=== PATIENT | male | born 1975 | race American Indian/Alaskan Native ===

== ENCOUNTER 2017-11-14 13:13 | Observation (INO) | payer OTHER ==
[2017-11-14] MEDS ORDERED: ASPIRIN PO ONE (13:24)
[2017-11-14 14:36] LABS: Basophils # (Auto) 0.1 K/mm3 (0.0-0.1); Eosinophils # (Auto) 0.2 K/mm3 (0.0-0.4); Eosinophils % (Auto) 2.2 % (0.0-4.3); Lymphocytes # (Auto) 1.2 K/mm3 (1.2-5.4); Lymphocytes % (Auto) 12.6 % (13.4-35.0); Mean Corpuscular HGB Conc 30 % (32-34); Mean Corpuscular Volume 74 fl (84-94); Monocytes # (Auto) 0.9 K/mm3 (0.0-0.8); Platelet Count 346 K/mm3 (140-440); Red Blood Count 5.03 M/mm3 (3.65-5.03); Red Cell Distribution Width 19.3 % (13.2-15.2)
[2017-11-14 14:37] LABS: Hemoglobin 11.2 gm/dl (11.8-15.2); Mean Corpuscular Hemoglobin 22 pg (28-32)
[2017-11-14 14:46] LABS: BUN/Creatinine Ratio 14; Blood Urea Nitrogen 11 mg/dL (9-20); Calcium 9.3 mg/dL (8.4-10.2); Hemolysis Index 0
--- NOTE | 2017-11-14 14:48 | Emergency Department Report ---
Blank Doc - Documentation Documentation: Patient is 42 years old male, morbidly obese. Patient presented to the ER complaining OF substernal chest pain, patient described his pain as he pulled muscle even though he did not have any physical activities recently. Patient stated that his pain is associated with shortness of breath and he will get very winded if he will for even a small distance. Patient also complaining of bilateral lower extremity edema. Patient denied any fever or cough. Given patient's clinical presentation, I believe this patient will be served well in our main ED.
--- NOTE | 2017-11-14 15:43 | XRay Report ---
PORTABLE CHEST INDICATION: Chest pain. COMPARISON: None similar at this institution. FINDINGS: Portable, frontal chest radiograph demonstrates exaggerated cardiomediastinal silhouette with cardiomegaly not excluded. Clear lungs. Exam in part limited due to patient's body habitus. EKG leads. Intact bones. CONCLUSION: No acute chest process, as described. Thank you for the opportunity to participate in this patient's care.
[2017-11-14] MEDS ORDERED: BABY ASPIRIN PO ONE (16:27)
[2017-11-14] MEDS ORDERED: LASIX IV ONE (16:27)
[2017-11-14] MEDS ORDERED: NITROSTAT SL PRN (16:27)
--- NOTE | 2017-11-14 16:28 | Emergency Department Report ---
ED Chest Pain HPI - General Chief Complaint: Chest Pain Stated Complaint: CHEST PAIN Time Seen by Provider: 11/14/17 14:41 Source: patient Mode of arrival: Ambulatory Limitations: No Limitations - History of Present Illness Initial Comments: This is a 42-year-old obese male, who was unknown to this provider previously, presents to the ER with a complaint of anterior chest wall pain secondary to coughing and bilateral lower extremity swelling. Patient denies DVT, pulmonary embolus risk factors. He reports that he gets quite sleepy during the day and falls asleep frequently during the day. He indicates that his significant other who sleeps with him has indicated that he stops breathing at nighttime. The patient has not had a cardiac stress test that he is aware of, nor has he had a sleep study that he is aware. He endorses chronic two-pillow orthopnea. He does not think he's had any unintentional weight gain. MD Complaint: chest pain -: Gradual Onset: during rest Pain Location: substernal Pain Radiation: RUE Consistency: intermittent Improves With: rest Worsens With: palpation Other Symptoms: cough Aspirin use within the Past 7 Days: (0) No - Related Data On Oral Contraceptives: No Home Medications Medication Instructions Recorded Confirmed Last Taken No Known Home Medications [No 11/14/17 11/14/17 Unknown Reported Home Medications] Allergies Allergy/AdvReac Type Severity Reaction Status Date / Time No Known Allergies Allergy Verified 11/14/17 13:21 Heart Score - HEART Score History: Slightly suspicious EKG: Non-specific Age: < 45 Risk factors: 1-2 risk factors Troponin: < normal limit HEART Score: 2 - Critical Actions Critical Actions: 0-3 pts:0.9-1.7%risk of adverse cardiac event.Candidate for discharge ED Review of Systems ROS: Stated complaint: CHEST PAIN Other details as noted in HPI Constitutional: denies: fever, malaise Respiratory: cough, shortness of breath Cardiovascular: chest pain Genitourinary: denies: dysuria Musculoskeletal: myalgia, other (bilateral lower extremity swelling) Neurological: weakness. denies: headache Psychiatric: denies: anxiety ED Past Medical Hx - Past Medical History Previous Medical History?: No - Surgical History Past Surgical History?: No - Social History Smoking Status: Former Smoker Substance Use Type: None - Medications Home Medications: Home Medications Medication Instructions Recorded Confirmed Last Taken Type No Known Home Medications [No 11/14/17 11/14/17 Unknown History Reported Home Medications] ED Physical Exam - General Limitations: No Limitations General appearance: alert, in no apparent distress, obese - Head Head exam: Present: atraumatic, normocephalic - Eye Eye exam: Present: normal appearance - ENT ENT exam: Present: normal exam, normal orophraynx, mucous membranes moist, normal external ear exam - Neck Neck exam: Present: normal inspection, full ROM - Respiratory Respiratory exam: Present: normal lung sounds bilaterally, chest wall tenderness. Absent: respiratory distress - Cardiovascular Cardiovascular Exam: Present: regular rate, normal rhythm, normal heart sounds. Absent: systolic murmur, diastolic murmur, rubs, gallop - GI/Abdominal GI/Abdominal exam: Present: soft, normal bowel sounds. Absent: distended, tenderness, guarding, rebound, rigid, pulsatile mass - Rectal Rectal exam: Present: deferred - Extremities Exam Extremities exam: Present: normal inspection (2+ pulses noted in the bilateral upper, lower extremities. Compartments soft. No long bony tenderness. The pelvis is stable.), full ROM, normal capillary refill, pedal edema, other (2+ pulses noted in the bilateral upper, lower extremities. Compartments soft. No long bony tenderness. The pelvis is stable.). Absent: tenderness, calf tenderness - Back Exam Back exam: Present: normal inspection, full ROM. Absent: tenderness, CVA tenderness (R), paraspinal tenderness, vertebral tenderness - Neurological Exam Neurological exam: Present: alert, oriented X3, CN II-XII intact, normal gait, other (no facial droop. Tongue midline. Extraocular movements intact bilaterally. Facial sensation intact to light touch in V1, V2, V3 distribution bilaterally. 5 and a 5 strength in 4 extremities. Sensation intact to light touch in 4 extremities.). Absent: motor sensory deficit - Psychiatric Psychiatric exam: Present: normal affect, normal mood - Skin Skin exam: Present: warm, dry, intact, normal color. Absent: rash ED Course Vital Signs 11/14/17 11/14/17 11/14/17 13:21 16:00 17:00 Temperature 99.1 F Pulse Rate 86 77 84 Respiratory 16 19 20 Rate Blood Pressure 164/89 152/90 Blood Pressure 161/79 [Left] O2 Sat by Pulse 96 93 95 Oximetry 11/14/17 18:01 Temperature Pulse Rate 86 Respiratory 15 Rate Blood Pressure 174/85 Blood Pressure [Left] O2 Sat by Pulse 95 Oximetry JAKI score - Jaki Score Age > 65: (0) No Aspirin use within the Past 7 Days: (0) No 3 or more CAD Risk Factors: (0) No 2 or more Angina events in past 24 hrs: (0) No Known CAD with more than 50% Stenosis: (0) No Elevated Cardiac Markers: (0) No ST Deviation Greater than 0.5mm: (0) No JAKI Score: 0 ED Medical Decision Making - Lab Data Result diagrams: 11/14/17 14:04 11/14/17 14:04 Vital Signs 11/14/17 11/14/17 13:21 16:00 Temperature 99.1 F Pulse Rate 86 77 Respiratory 16 19 Rate Blood Pressure 164/89 152/90 O2 Sat by Pulse 96 93 Oximetry Lab Results 11/14/17 11/14/17 11/14/17 Range/Units 14:04 14:04 14:53 WBC 9.9 (4.5-11.0) K/mm3 RBC 5.03 (3.65-5.03) M/mm3 Hgb 11.2 L (11.8-15.2) gm/dl Hct 37.0 (35.5-45.6) % MCV 74 L (84-94) fl MCH 22 L (28-32) pg MCHC 30 L (32-34) % RDW 19.3 H (13.2-15.2) % Plt Count 346 (140-440) K/mm3 Lymph % (Auto) 12.6 L (13.4-35.0) % [place] % (Auto) 9.0 H (0.0-7.3) % Eos % (Auto) 2.2 (0.0-4.3) % Baso % (Auto) 1.0 (0.0-1.8) % Lymph # 1.2 (1.2-5.4) K/mm3 [place] # 0.9 H (0.0-0.8) K/mm3 Eos # 0.2 (0.0-0.4) K/mm3 Baso # 0.1 (0.0-0.1) K/mm3 Seg Neutrophils % 75.2 H (40.0-70.0) % Seg Neutrophils # 7.4 (1.8-7.7) K/mm3 D-Dimer (0-234) ng/mlDDU POC ABG pH (7.35-7.45) POC ABG pCO2 (35-45) POC ABG pO2 (80-105) POC ABG HCO3 POC ABG Total CO2 POC ABG O2 Sat POC ABG Base Excess FiO2 % Sodium 144 (137-145) mmol/L Potassium 3.8 (3.6-5.0) mmol/L Chloride 101.4 (98-107) mmol/L Carbon Dioxide 36 H (22-30) mmol/L Anion Gap 10 mmol/L BUN 11 (9-20) mg/dL Creatinine 0.8 (0.8-1.5) mg/dL Estimated GFR > 60 ml/min BUN/Creatinine Ratio 14 % Glucose 105 H (75-100) mg/dL Calcium 9.3 (8.4-10.2) mg/dL Magnesium (1.7-2.3) mg/dL Total Creatine Kinase (55-170) units/L Troponin T < 0.010 (0.00-0.029) ng/mL NT-Pro-B Natriuret Pep 104.3 (0-450) pg/mL Triglycerides (2-149) mg/dL Cholesterol (50-199) mg/dL LDL Cholesterol Direct (50-130) mg/dL HDL Cholesterol (40-59) mg/dL Cholesterol/HDL Ratio % TSH (0.270-4.200) mlU/mL Free T4 (0.76-1.46) ng/dL 11/14/17 11/14/17 11/14/17 Range/Units 14:57 16:22 16:49 WBC (4.5-11.0) K/mm3 RBC (3.65-5.03) M/mm3 Hgb (11.8-15.2) gm/dl Hct (35.5-45.6) % MCV (84-94) fl MCH (28-32) pg MCHC (32-34) % RDW (13.2-15.2) % Plt Count (140-440) K/mm3 Lymph % (Auto) (13.4-35.0) % [place] % (Auto) (0.0-7.3) % Eos % (Auto) (0.0-4.3) % Baso % (Auto) (0.0-1.8) % Lymph # (1.2-5.4) K/mm3 [place] # (0.0-0.8) K/mm3 Eos # (0.0-0.4) K/mm3 Baso # (0.0-0.1) K/mm3 Seg Neutrophils % (40.0-70.0) % Seg Neutrophils # (1.8-7.7) K/mm3 D-Dimer (0-234) ng/mlDDU POC ABG pH (7.35-7.45) POC ABG pCO2 (35-45) POC ABG pO2 (80-105) POC ABG HCO3 POC ABG Total CO2 POC ABG O2 Sat POC ABG Base Excess FiO2 % Sodium (137-145) mmol/L Potassium (3.6-5.0) mmol/L Chloride (98-107) mmol/L Carbon Dioxide (22-30) mmol/L Anion Gap mmol/L BUN (9-20) mg/dL Creatinine (0.8-1.5) mg/dL Estimated GFR ml/min BUN/Creatinine Ratio % Glucose (75-100) mg/dL Calcium (8.4-10.2) mg/dL Magnesium 2.10 (1.7-2.3) mg/dL Total Creatine Kinase 166 (55-170) units/L Troponin T < 0.010 (0.00-0.029) ng/mL NT-Pro-B Natriuret Pep 93.96 (0-450) pg/mL Triglycerides (2-149) mg/dL Cholesterol (50-199) mg/dL LDL Cholesterol Direct (50-130) mg/dL HDL Cholesterol (40-59) mg/dL Cholesterol/HDL Ratio % TSH 2.370 (0.270-4.200) mlU/mL Free T4 0.91 (0.76-1.46) ng/dL 11/14/17 11/14/17 11/14/17 Range/Units 16:49 16:49 17:24 WBC (4.5-11.0) K/mm3 RBC (3.65-5.03) M/mm3 Hgb (11.8-15.2) gm/dl Hct (35.5-45.6) % MCV (84-94) fl MCH (28-32) pg MCHC (32-34) % RDW (13.2-15.2) % Plt Count (140-440) K/mm3 Lymph % (Auto) (13.4-35.0) % Rice % (Auto) (0.0-7.3) % Eos % (Auto) (0.0-4.3) % Baso % (Auto) (0.0-1.8) % Lymph # (1.2-5.4) K/mm3 [place] # (0.0-0.8) K/mm3 Eos # (0.0-0.4) K/mm3 Baso # (0.0-0.1) K/mm3 Seg Neutrophils % (40.0-70.0) % Seg Neutrophils # (1.8-7.7) K/mm3 D-Dimer 396.20 H (0-234) ng/mlDDU POC ABG pH 7.430 (7.35-7.45) POC ABG pCO2 53.7 H (35-45) POC ABG pO2 56 L (80-105) POC ABG HCO3 35.6 POC ABG Total CO2 37 POC ABG O2 Sat 89 POC ABG Base Excess 11 FiO2 21 % Sodium (137-145) mmol/L Potassium (3.6-5.0) mmol/L Chloride (98-107) mmol/L Carbon Dioxide (22-30) mmol/L Anion Gap mmol/L BUN (9-20) mg/dL Creatinine (0.8-1.5) mg/dL Estimated GFR ml/min BUN/Creatinine Ratio % Glucose (75-100) mg/dL Calcium (8.4-10.2) mg/dL Magnesium (1.7-2.3) mg/dL Total Creatine Kinase (55-170) units/L Troponin T (0.00-0.029) ng/mL NT-Pro-B Natriuret Pep (0-450) pg/mL Triglycerides 119 (2-149) mg/dL Cholesterol 141 (50-199) mg/dL LDL Cholesterol Direct 90 (50-130) mg/dL HDL Cholesterol 37 L (40-59) mg/dL Cholesterol/HDL Ratio 3.81 % TSH (0.270-4.200) mlU/mL Free T4 (0.76-1.46) ng/dL - EKG Data -: EKG Interpreted by Me EKG shows normal: sinus rhythm - EKG Data When compared to previous EKG there are: previous EKG unavailable 11/14/17 20:11 Sinus, 75 bpm, borderline rightward axis deviation, incomplete right bundle branch block, nonspecific ventricular conduction delay, QTC prolonged, abnormal EKG, not a STEMI, there is no prior for comparison - Radiology Data Radiology results: report reviewed, image reviewed interpreted by me: LIVE [facility] BRONSON CARY Male : 1975 [id number] 11/14/17 16:59 - Radiology Dept. Note by YAN HU Acct Num: [id number] : 1975 Patient Age: 42 BLE VENOUS DUPLEX COMPLETED. VAS LAB PRELIMINARY REPORT; NO EVIDENCE OF DVT/SVT NOTED IN VESSELS/SEGMENTS EXAMINED, BLE. PX CALF VESSELS DIFF. TO IMAGE DUE TO HABITUS/SWELLING. PHYSICIANS REPORT TO FOLLOW...(RSK) Initialized on 11/14/17 16:59 - END OF NOTE LIVE [facility] BRONSON CARY Male : 1975 [facility]# [id number] 11/14/17 16:59 - Radiology Dept. Note by YAN HU Acct Num: [id number] : 1975 Patient Age: 42 BLE VENOUS DUPLEX COMPLETED. VAS LAB PRELIMINARY REPORT; NO EVIDENCE OF DVT/SVT NOTED IN VESSELS/SEGMENTS EXAMINED, BLE. PX CALF VESSELS DIFF. TO IMAGE DUE TO HABITUS/SWELLING. PHYSICIANS REPORT TO FOLLOW...(RSK) Initialized on 11/14/17 16:59 - END OF NOTE X-ray of the chest is negative for acute disease - Medical Decision Making Differential diagnosis, including but not limited to: DVT, undiagnosed obstructive sleep apnea, right-sided heart failure, pulmonary hypertension, costochondritis, pneumonia assessment and plan: 42-year-old obese male, who has lower extremity edema, gives a clinical history that is most likely consistent with undiagnosed obstructive sleep apnea, ABG shows hypoxemic respiratory failure, no DVT is noted on lower extremity DVT study, low risk by well's criteria, no pulmonary and posterior DVT risk factors, perc negative As a strong family history of cardiac disease, reports his father passed from a myocardial infarction in his 60s. Patient will be admitted to the hospital for presumed new onset right-sided heart failure, likely secondary to undiagnosed obstructive sleep apnea and probable pulmonary hypertension. He will be given aspirin and Lasix. The case is presented to the Hospital physician, Dr. Suarez who accepted the patient to his service. Critical care attestation.: If time is entered above; I have spent that time in minutes in the direct care of this critically ill patient, excluding procedure time. ED Disposition Clinical Impression: Acute hypoxemic respiratory failure Right-sided heart failure Qualifiers: Heart failure chronicity: unspecified Qualified Code(s): I50.810 - Right heart failure, unspecified Chest pain Qualifiers: Chest pain type: other chest pain Qualified Code(s): R07.89 - Other chest pain Disposition: 09 OP ADMIT IP TO THIS HOSP Is pt being admited?: Yes Condition: Good
--- NOTE | 2017-11-14 16:36 | History and Physical Report ---
History of Present Illness Chief complaint: My chest hurts History of present illness: 42 YO Male with Obesity Hypoventilation presents to ED for evaluation. Pt states that he has experienced pain in his chest for the past 2 weeks, with worsening symptoms over the past 2 days. Pt states that pain is 8/10, substernal , nonradiating, worsened with exertion, not relieved with rest, intermittent, no associated with shortness of breath. Pt denies fever, chills, palpitations, NVD, Syncope, BRBPR, Unilateral leg swelling, calf pain, hemoptysis, individual/ family history of DVT/PE, unintentional weight loss, or night sweats. Pt seen and evaluated in ED and found to have ACS as well as diastolic CHF. Pt admitted to telemetry. Past History Past Medical History: other (Obesity hypoventilation) Past Surgical History: No surgical history, Other (reviewed) Social history: , lives with family. denies: smoking, alcohol abuse, prescription drug abuse Family history: CAD, hypertension Medications and Allergies Allergies Allergy/AdvReac Type Severity Reaction Status Date / Time No Known Allergies Allergy Verified 11/14/17 13:21 Home Medications Medication Instructions Recorded Confirmed Last Taken Type No Known Home Medications [No 11/14/17 11/14/17 Unknown History Reported Home Medications] Active Meds: Active Medications Nitroglycerin (Nitrostat) 0.4 mg SL .Q5MIN PRN PRN Reason: Chest Pain Review of Systems Constitutional: no weight loss, no weight gain, no fever, no chills Ears, nose, mouth and throat: no ear pain, no ear discharge, no tinnitis, no decreased hearing, no nose pain, no nasal congestion Cardiovascular: chest pain, no orthopnea, no palpitations, no edema, no syncope , no shortness of breath Respiratory: no cough, no cough with sputum, no excessive sputum, no hemoptysis , no shortness of breath Gastrointestinal: no abdominal pain, no nausea, no vomiting, no diarrhea, no constipation Genitourinary Male: no hematuria, no flank pain, no discharge, no urinary frequency, no urinary hesitancy Rectal: no pain, no incontinence, no bleeding Musculoskeletal: no neck stiffness, no neck pain, no shooting arm pain, no arm numbness/tingling, no low back pain Integumentary: no rash, no pruritis, no redness, no sores, no wounds Neurological: no transient paralysis, no paralysis, no weakness, no parathesias , no numbness, no tingling, no seizures Psychiatric: no anxiety, no memory loss, no change in sleep habits, no sleep disturbances, no insomnia, no hypersomnia, no change in appetite, no change in libido Endocrine: no cold intolerance, no heat intolerance, no polyphagia, no excessive thirst, no polydipsia, no polyuria Hematologic/Lymphatic: no easy bruising, no easy bleeding, no lymphadenopathy, no lymphedema Allergic/Immunologic: no urticaria, no allergic rhinitis, no wheezing Exam - Constitutional Vitals: Temp Pulse Resp BP Pulse Ox 99.1 F 86 16 164/89 96 11/14/17 13:21 11/14/17 13:21 11/14/17 13:21 11/14/17 13:21 11/14/17 13:21 General appearance: Present: no acute distress, well-nourished, obese - EENT Eyes: Present: PERRL ENT: hearing intact, clear oral mucosa - Neck Neck: Present: supple, normal ROM - Respiratory Respiratory effort: normal Respiratory: bilateral: CTA - Cardiovascular Heart Sounds: Present: S1 & S2. Absent: rub, click - Extremities Extremities: pulses symmetrical, No edema Peripheral Pulses: within normal limits - Abdominal General gastrointestinal: Present: soft, non-tender, non-distended, normal bowel sounds Male genitourinary: Present: normal - Integumentary Integumentary: Present: clear, warm, dry - Musculoskeletal Musculoskeletal: gait normal, strength equal bilaterally - Psychiatric Psychiatric: appropriate mood/affect, intact judgment & insight - Neurologic Neurologic: CNII-XII intact, moves all extremities Results - Labs CBC & Chem 7: 11/14/17 14:04 11/14/17 14:04 Labs: Abnormal lab results 11/14/17 11/14/17 Range/Units 14:04 14:04 Hgb 11.2 L (11.8-15.2) gm/dl MCV 74 L (84-94) fl MCH 22 L (28-32) pg MCHC 30 L (32-34) % RDW 19.3 H (13.2-15.2) % Lymph % (Auto) 12.6 L (13.4-35.0) % [place] % (Auto) 9.0 H (0.0-7.3) % [place] # 0.9 H (0.0-0.8) K/mm3 Seg Neutrophils % 75.2 H (40.0-70.0) % Carbon Dioxide 36 H (22-30) mmol/L Glucose 105 H (75-100) mg/dL Assessment and Plan - Patient Problems (1) ACS (acute coronary syndrome) Current Visit: Yes Status: Acute Plan to address problem: Admit to telemetry, serial cardiac enzymes, ekg, echo, stress test, aspirin, morphine, supplemental oxygen, nitro, D dimer, (2) Diastolic CHF Current Visit: Yes Status: Suspected Qualifiers: Heart failure chronicity: acute Qualified Code(s): I50.31 - Acute diastolic (congestive) heart failure Plan to address problem: Strict I/O, daily weight, monitor uop q shift, Echo, cardiology consulted in ED , supplemental oxygen, pulse oximetry, (3) Obesity hypoventilation syndrome Current Visit: Yes Status: Acute Plan to address problem: supplemental oxygen, nebulizer therapy, NIPPV as clinically indicated, ABG (4) DVT prophylaxis Current Visit: Yes Status: Acute Plan to address problem: SCD to BLE while in bed,
[2017-11-14] MEDS ORDERED: PROVENTIL IH PRN (16:39)
[2017-11-14] MEDS ORDERED: TYLENOL PO PRN (16:39)
[2017-11-14] MEDS ORDERED: ZOFRAN IV PRN (16:39)
[2017-11-14] MEDS ORDERED: SODIUM CHLORIDE FLUSH SYRINGE 10 ML IV PRN ×2 (16:39)
[2017-11-14 17:28] LABS: Chol/HDL Ratio 3.81 %
[2017-11-14 17:57] LABS: Free T4 (Free Thyroxine) 0.91 ng/dL (0.76-1.46)
[2017-11-14] MEDS ORDERED: APRESOLINE IV PRN (18:48)
--- NOTE | 2017-11-14 22:24 | Cat Scan Report ---
FINAL REPORT PROCEDURE: CT angiogram chest with contrast. TECHNIQUE: Computerized tomographic angiography of the chest was performed after the IV injection of iodinated nonionic contrast including image processing. The image data was postprocessed using 2-dimensional multiplanar reformatted (MPR) and 3-dimensional (MIP and/or volume rendered) techniques. HISTORY: Dyspnea. COMPARISON: No prior studies are available for comparison. FINDINGS: The trachea and central bronchi appear normal. The lungs are clear and well expanded. There are no pleural effusions. The thoracic aorta has a normal caliber without evidence of dissection. The pulmonary arteries enhance normally without evidence of pulmonary embolism. There is no mediastinal adenopathy. The heart size is normal. There are no pleural effusions. The adrenal glands are not enlarged. The thoracic skeleton appears intact. IMPRESSION: Normal study.
[2017-11-14] MEDS: SODIUM CHLORIDE FLUSH SYRINGE 10 ML IV SCH (22:51)
[2017-11-15] MEDS ORDERED: LEXISCAN IV ONE ×2 (08:24→08:27)
[2017-11-15] MEDS ORDERED: NORVASC PO SCH (12:00)
--- NOTE | 2017-11-15 12:26 | Consultation ---
History of Present Illness Consult date: 11/15/17 Consult reason: chest pain History of present illness: Admitted with chest pain Past History Past Medical History: other (Obesity hypoventilation) Past Surgical History: No surgical history, Other (reviewed) Social history: , lives with family. denies: smoking, alcohol abuse, prescription drug abuse Family history: CAD, hypertension Medications and Allergies Allergies Allergy/AdvReac Type Severity Reaction Status Date / Time No Known Allergies Allergy Verified 11/14/17 13:21 Home Medications Medication Instructions Recorded Confirmed Last Taken Type No Known Home Medications [No 11/14/17 11/14/17 Unknown History Reported Home Medications] Active Meds: Active Medications Acetaminophen (Tylenol) 650 mg PO Q4H PRN PRN Reason: Pain MILD(1-3)/Fever >100.5/CANO Albuterol (Proventil) 2.5 mg IH Q4HRT PRN PRN Reason: Shortness Of Breath Amlodipine Besylate (Norvasc) 10 mg PO QDAY [facility] Aspirin (Aspirin) 325 mg PO QDAY [facility] Carvedilol (Coreg) 6.25 mg PO BID [facility] Hydralazine HCl (Apresoline) 10 mg IV Q4HR PRN PRN Reason: Hypertension Last Admin: 11/14/17 22:50 Dose: 10 mg Lisinopril (Zestril) 2.5 mg PO QDAY [facility] Nitroglycerin (Nitrostat) 0.4 mg SL .Q5MIN PRN PRN Reason: Chest Pain Ondansetron HCl (Zofran) 4 mg IV Q8H PRN PRN Reason: Nausea And Vomiting Sodium Chloride (Sodium Chloride Flush Syringe 10 Ml) 10 ml IV BID [facility] Last Admin: 11/14/17 22:51 Dose: 10 ml Sodium Chloride (Sodium Chloride Flush Syringe 10 Ml) 10 ml IV PRN PRN PRN Reason: LINE FLUSH Review of Systems All systems: negative Physical Examination Vital Signs Temp Pulse Resp BP Pulse Ox 99.1 F 86 16 164/89 96 11/14/17 13:21 11/14/17 13:21 11/14/17 13:21 11/14/17 13:21 11/14/17 13:21 General appearance: no acute distress Neck: Positive: neck supple Cardiac: Positive: Reg Rate and Rhythm Lungs: Positive: Normal Exam Results 11/14/17 14:04 11/14/17 14:04 Lipids 11/14/17 Range/Units 16:49 Triglycerides 119 (2-149) mg/dL Cholesterol 141 (50-199) mg/dL HDL Cholesterol 37 L (40-59) mg/dL Cholesterol/HDL Ratio 3.81 % CBC 11/14/17 Range/Units 14:04 WBC 9.9 (4.5-11.0) K/mm3 RBC 5.03 (3.65-5.03) M/mm3 Hgb 11.2 L (11.8-15.2) gm/dl Hct 37.0 (35.5-45.6) % Plt Count 346 (140-440) K/mm3 Lymph # 1.2 (1.2-5.4) K/mm3 [place] # 0.9 H (0.0-0.8) K/mm3 Eos # 0.2 (0.0-0.4) K/mm3 Baso # 0.1 (0.0-0.1) K/mm3 Comprehensive Metabolic Panel 11/14/17 Range/Units 14:04 Sodium 144 (137-145) mmol/L Potassium 3.8 (3.6-5.0) mmol/L Chloride 101.4 (98-107) mmol/L Carbon Dioxide 36 H (22-30) mmol/L BUN 11 (9-20) mg/dL Creatinine 0.8 (0.8-1.5) mg/dL Glucose 105 H (75-100) mg/dL Calcium 9.3 (8.4-10.2) mg/dL - EKG Interpretation EKG: sinus rhythm Assessment and Plan Chest Pain No ischemia by MPI Normal LVEF by echo Negative troponin No ischemic ECG changes Dilated RV with evidence of RV pressure and volume overload CTA chest - no PE Suspect RV dysfunction due to SABINE and OHS Systemic Hypertension No further cardiac work-up is needed
[2017-11-15 13:10] VITALS: BP 156/79
[2017-11-15] MEDS: SODIUM CHLORIDE FLUSH SYRINGE 10 ML IV SCH (14:06)
--- NOTE | 2017-11-15 15:07 | Discharge Summary ---
Providers - Providers Date of Admission: 11/14/17 16:39 Date of discharge: 11/15/17 Attending physician: BEULAH VELA 11/14/17 Consult to Cardiac Rehabilitation [CONS] Routine Reason For Exam: Phase I 11/14/17 16:39 Consult to Cardiology [CONS] Routine Consulting Provider: OCTAVIO BEATTY Reason For Exam: acs Primary care physician: MD PEDIATRIC ALLERGIST Hospitalization Reason for admission: chest pain Condition: Good Pertinent studies: Chest x-ray; no acute abnormality Lower extremity venous Doppler; CTA chest; no PE Nuclear stress test; negative for reversible ischemia Echocardiogram; EF 60-65% Hospital course: 42-year-old markedly obese patient was admitted through emergency room with atypical chest pain Patient was initially evaluated and admitted to the hospital symptomatically managed Patient had extensive cardiac workup which was negative as mentioned above Patient was symptomatically managed, counseling done advised to be complaints with medications and diet and follow-up visits Patient also advised, at modification and exercise as tolerated and weight reduction May also benefit by bariatric surgical consultation for weight reduction program Today patient is comfortable in no new complaints Vital signs reviewed, Physical examination prior to discharge did not show any new changes Patient advised to see private solid waste collection worker for sleep studies to rule out obstructive sleep apnea Patient is hemodynamically and clinically stable at discharge Discharge diagnosis; --Atypical chest pain; resolved, negative stress test --Chest pain secondary to gastroesophageal reflux disease --Hypertension --Morbid obesity; BMI 54.1 --Recreational drug use; marijuana --Possible obstructive sleep apnea Disposition: DC-01 TO HOME OR SELFCARE Time spent for discharge: 32 min Core Measure Documentation - Palliative Care Palliative Care/ Comfort Measures: Not Applicable - Core Measures Any of the following diagnoses?: none Exam - Constitutional Vitals: Temp Pulse Resp BP Pulse Ox 98.0 F 78 18 156/79 94 11/15/17 12:06 11/15/17 10:00 11/15/17 12:06 11/15/17 12:06 11/15/17 10:00 General appearance: Present: no acute distress, well-nourished - EENT Eyes: Present: PERRL, EOM intact - Neck Neck: Present: supple, normal ROM - Respiratory Respiratory effort: normal Respiratory: negative: rales, rhonchi, wheezing - Cardiovascular Rhythm: regular Heart Sounds: Present: S1 & S2 - Extremities Extremities: no ischemia, pulses intact - Abdominal General gastrointestinal: Present: soft, non-tender, non-distended, normal bowel sounds - Integumentary Integumentary: Present: clear, warm - Musculoskeletal Musculoskeletal: strength equal bilaterally, generalized weakness - Psychiatric Psychiatric: appropriate mood/affect, cooperative - Neurologic Neurologic: CNII-XII intact, moves all extremities Plan Activity: advance as tolerated Diet: low salt Special Instructions: smoking cessation Additional Instructions: Consultant Teacher Dr. Rascon for outpatient sleep study to rule out obstructive sleep apnea. Walking cessation counseling done. Diet modification and exercise as tolerated and weight reduction when medically stable Follow up with: PRIMARY CARE, [Primary Care Provider] - 3-5 Days MARIANO RASCON MD [Staff Physician] - 7 Days KATALINA DOW MD [Staff Physician] - 7 Days Prescriptions: amLODIPine [Norvasc] 10 mg PO QDAY #30 tablet Pantoprazole [Protonix] 40 mg PO QDAY #30 tablet
[2017-11-15] MEDS ORDERED: COREG PO SCH (22:00)
--- NOTE | 2017-11-15 23:35 | Treadmill Report ---
INDICATION: Chest pain. ORDERING PHYSICIAN: Harini Beard M.D. FINDINGS: There is no scintigraphic evidence of myocardial ischemia. The left ventricle is normal in size. The left ventricular wall motion is normal. There is, however, evidence of increased right ventricular uptake. The right ventricular cavity appears to be dilated. The left ventricular ejection fraction is measured at 49% with normal wall motion and wall thickening. CONCLUSION: 1. This is a fair quality myocardial perfusion scan limited by the patient's body habitus and increased uptake in the adjacent liver. 2. No scintigraphic evidence of myocardial ischemia. 3. Normal left ventricular size with an ejection fraction measured at 46. 4. Evidence of increased right ventricular size and increased right ventricular uptake suggesting evidence of right ventricular pressure and volume overload. 5. A clinical correlation is recommended. JOB# [id number] SYD/WILL
[2017-11-16] MEDS ORDERED: ASPIRIN PO SCH (10:00)
[2017-11-16] MEDS ORDERED: ZESTRIL PO SCH (10:00)
== END 2017-11-15 17:30 | disposition home or self-care (01) ==
LOC: ED 13:13 → 4A 16:39 → INTOOBSV 16:39
PROVIDERS: ADMIT Internal Medicine; ATTEND Internal Medicine
DX: K21.9 Gastro-esophageal reflux disease without esophagitis (principal); I11.0 Hypertensive heart disease with heart failure; I50.30 Unspecified diastolic (congestive) heart failure; E66.01 Morbid (severe) obesity due to excess calories; Z68.43 Body mass index [BMI] 50.0-59.9, adult; Z87.891 Personal history of nicotine dependence; Z82.49 Family history of ischemic heart disease and other diseases of the circulatory system
CPT/HCPCS: 36415; 71045; 71275; 78452; 80048; 80061; 82550; 82803; 83735; 83880; 84439; 84443; 84484; 85025; 85379; 87116; 93005; 93010; 93017; 93306; 93970; 96374; 96375; 99285; 99406; A9502; G0378; J0360; J1940; J2785; Q9967; J2405